=== PATIENT | male | born 1970 | race Caucasian/White ===

== ENCOUNTER 2018-01-28 19:04 | Emergency (ER) | payer OTHER ==
[~2018-01-28] VITALS: Ht 172.7 cm; Wt 130.0 kg
[~2018-01-28 19:04] MED LIST: ALLOPURINOL300 MG PO; ASPIR 8181 M1 PO; ATENOLOL50 MG PO; AZOR 10/40 M1 TABLET PO; BAYER CHEWABLE81 MG PO; COLACE100 MG PO; COLCHICINE0.6 MG PO; COUMADIN,JANTO7.5 MG PO; COUMADIN,JANTOV10 MG PO; FLEXERIL10 MG PO; INDOCIN50 MG PO; LISINOPRIL/HCTZ; MICARDIS HCT1 TABLE2 PO; OXYCODONE HCL10 MG PO; PERCOCET 10/1 TABLET PO; STOOL SOFTENER100 MG PO; VOLTAREN75 MG PO; VYTORIN 10-401 EACH PO; XARELTO15 MG PO; ZESTORETIC 20-1 EAC1 PO
[2018-01-28 20:05] LABS: HEMATOCRIT 38.7 % (38.0-50.0); HEMOGLOBIN 13.4 G/DL (12.5-16.6); MCH 29.8 PG (29.0-34.0); MCHC 34.6 G/DL (30.0-36.0); MCV 86.2 FL (86-99); PLATELET COUNT 369 K/uL (156-360); RBC DIS.WIDTH-SD 47.5 % (39-53); RED BLOOD COUNT 4.49 M/uL (4.00-5.50); WHITE BLOOD COUNT 6.9 K/uL (4.1-10.2)
[2018-01-28 20:14] LABS: INTER. NORMALIZED RATIO 1.8
[2018-01-28 20:15] LABS: PTT 30.6 SEC (25-37)
[2018-01-28 20:16] LABS: CHLORIDE 104 mEq/L (99-109); POTASSIUM 4.3 mEq/L (3.7-5.4); SODIUM 139 mEq/L (136-147)
[2018-01-28 20:17] LABS: GLUCOSE 103 mg/dL (70-99)
[2018-01-28 20:21] LABS: CREATININE 1.6 mg/dL (0.6-1.3); GFR ESTIMATE (CALCULATED) 49 mL/min/ (58.99-99999)
[2018-01-28 20:22] LABS: UREA NITROGEN (BUN) 33 mg/dL (9-23)
[2018-01-28] MEDS ORDERED: FLEXERIL10 MG PO (21:30)
[2018-01-28] MEDS ORDERED: MEDROL DOSEPAK4 MG PO (21:30)
[2018-01-28 21:45] VITALS: BP 161/99
== END 2018-01-28 21:48 | disposition home or self-care (01) ==
LOC: EME 19:04
PROVIDERS: Physician Assistant
DX: M54.41 Lumbago with sciatica, right side (principal); I73.9 Peripheral vascular disease, unspecified; R79.1 Abnormal coagulation profile; M79.604 Pain in right leg; G89.29 Other chronic pain; Z79.01 Long term (current) use of anticoagulants; Z91.19 Patient's noncompliance with other medical treatment and regimen; I10 Essential (primary) hypertension; Z86.79 Personal history of other diseases of the circulatory system; Z79.82 Long term (current) use of aspirin
CPT/HCPCS: 80048; 85027; 85610; 85730; 93971; 99281; 99284; J1885; J2930